=== PATIENT | female | born 2000 | race Caucasian/White ===

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

== ENCOUNTER → 2021-05-21 | Outpatient (REF) | payer OTHER ==
[2021-05-21 17:48] LABS: TOTAL PROTEIN,RANDOM URINE 14.6 MG/DL (0.0-12.0)
[2021-05-21 17:49] LABS: APPEARANCE, URINE HAZY (CLEAR); BACTERIA, URINE AUTO 1+ (NEGATIVE); BILIRUBIN, URINE AUTO NEGATIVE (NEGATIVE); BLOOD, URINE BLOOD NEGATIVE (NEGATIVE); COLOR, URINE YELLOW (YELLOW); GLUCOSE, URINE (UA) AUTO NEGATIVE (NEGATIVE); KETONE, URINE AUTO NEGATIVE (NEGATIVE); LEUKOCYTE ESTERASE, URINE AUTO NEGATIVE (NEGATIVE); MUCUS, URINE SMALL (NEGATIVE); NITRITE, URINE AUTO NEGATIVE (NEGATIVE); PROTEIN, URINE AUTO NEGATIVE (NEGATIVE); RBC, URINE AUTO 3 /HPF (0-3); SPECIFIC GRAVITY URINE AUTO 1.017 (1.002-1.035); SQUAMOUS EPITHELIAL CELL UR AU 7 /HPF (0-6); UROBILINOGEN, URINE AUTO 0.2 mg/dL (0.0-2.0); WBC, URINE AUTO 5 /HPF (0-3)
[2021-05-21 17:56] LABS: BASO % 0.4 % (0.0-1.0); EOS # 0.2 10^3/uL (0.0-0.5); EOS % 2.4 % (0.0-3.0); HEMATOCRIT 45.5 % (36.0-47.0); LYMPH # 2.3 10^3/uL (1.5-5.0); LYMPH % 32.7 % (24.0-44.0); MONO # 0.5 10^3/uL (0.0-0.8); MONO % 6.3 % (2.0-8.0); NEUTROPHILS # 4.2 10^3/uL (1.5-8.5); NEUTROPHILS % 57.9 % (36.0-66.0); PLATELET COUNT, AUTOMATED 317 10^3/uL (150-450); WHITE BLOOD COUNT 7.2 10^3/uL (4.0-10.0)
[2021-05-21 18:27] LABS: ALBUMIN 4.7 GM/DL (3.2-5.2); ALT/SGPT 40 U/L (12-78); BILIRUBIN,TOTAL 1.2 MG/DL (0.2-1.0); BLOOD UREA NITROGEN 15 MG/DL (7-18); CALCIUM LEVEL 9.7 MG/DL (8.5-10.1); CARBON DIOXIDE LEVEL 29 MEQ/L (21-32); CHLORIDE LEVEL 106 MEQ/L (98-107); COMPLEMENT C3 146 MG/DL (90-180); COMPLEMENT C4 18 MG/DL (10-40); CREATININE FOR GFR 0.86 MG/DL (0.55-1.30); GLUCOSE, FASTING 51 MG/DL (70-100); POTASSIUM SERUM 4.5 MEQ/L (3.5-5.1); SODIUM LEVEL 139 MEQ/L (136-145); TOTAL PROTEIN 8.4 GM/DL (6.4-8.2)
[2021-05-21 19:02] LABS: ERYTHROCYTE SEDIMENTATION RATE 3 mm/hr (0-20)
== END ==
LOC: M SFHCRHEU 14:10
PROVIDERS: ATTEND Internal Medicine Rheumatology
DX: M35.3 Polymyalgia rheumatica (principal); H04.123 Dry eye syndrome of bilateral lacrimal glands

== ENCOUNTER → 2022-08-09 | Outpatient (CLI) | payer OTHER ==
[~2022-08-09] MED LIST: ALBU8.5H; FLUT50SP17; LORY1TAB2; VIIB20TA
[2022-08-09 17:42] LABS: HEMATOCRIT 36.1 % (36.0-47.0); HEMOGLOBIN 11.8 g/dl (12.0-15.5); MEAN CORPUSCULAR HEMOGLOBIN 29.2 pg (27.0-33.0); MEAN CORPUSCULAR HGB CONC 32.7 g/dl (32.0-36.5); MEAN CORPUSCULAR VOLUME 89.4 fl (80.0-96.0); PLATELET COUNT, AUTOMATED 268 10^3/uL (150-450); RED BLOOD COUNT 4.04 10^6/uL (4.00-5.40); WHITE BLOOD COUNT 7.6 10^3/uL (4.0-10.0)
[2022-08-09 18:38] LABS: HIV 1&2 SCREEN NEGATIVE (NEGATIVE)
[2022-08-09 18:45] LABS: HEPATITIS C VIRUS ABY INDEX 0.1 INDEX (<0.8)
== END ==
LOC: M PLALAB 15:36
PROVIDERS: ATTEND Advanced Practice Midwife
DX: Z34.81 Encounter for supervision of other normal pregnancy, first trimester (principal); Z3A.00 Weeks of gestation of pregnancy not specified

== ENCOUNTER 2022-09-08 14:49 | Emergency (ER) | payer OTHER ==
[~2022-09-08] VITALS: Ht 154.9 cm; Wt 52.5 kg
[2022-09-08] MEDS ORDERED: APAP325T4 PO (14:57)
[2022-09-08 15:59] LABS: BASO % 0.3 % (0.0-1.0); EOS # 0.1 10^3/uL (0.0-0.5); EOS % 1.1 % (0.0-3.0); HEMATOCRIT 40.2 % (36.0-47.0); HEMOGLOBIN 13.4 g/dl (12.0-15.5); LYMPH # 2.2 10^3/uL (1.5-5.0); LYMPH % 20.8 % (24.0-44.0); MEAN CORPUSCULAR HGB CONC 33.3 g/dl (32.0-36.5); MEAN CORPUSCULAR VOLUME 90.1 fl (80.0-96.0); MONO # 0.6 10^3/uL (0.0-0.8); MONO % 5.3 % (2.0-8.0); NEUTROPHILS # 7.7 10^3/uL (1.5-8.5); NEUTROPHILS % 72.1 % (36.0-66.0); PLATELET COUNT, AUTOMATED 266 10^3/uL (150-450); RED BLOOD COUNT 4.46 10^6/uL (4.00-5.40); WHITE BLOOD COUNT 10.7 10^3/uL (4.0-10.0)
[2022-09-08 16:17] LABS: BLOOD UREA NITROGEN 8 MG/DL (9-23); CALCIUM LEVEL 9.2 MG/DL (8.5-10.1); CARBON DIOXIDE LEVEL 23 MMOL/L (20-31); CHLORIDE LEVEL 109 MMOL/L (98-107); CREATININE FOR GFR 0.57 MG/DL (0.55-1.30); GLOMERULAR FILTRATION RATE > 60.0 (>60); GLUCOSE, FASTING 80 MG/DL (60-100); POTASSIUM SERUM 4.3 MMOL/L (3.5-5.1); SODIUM LEVEL 141 MMOL/L (136-145)
[2022-09-08 16:31] LABS: HCG, SERUM QUANTITATIVE 2650.5 MIU/ML (<4.2)
[2022-09-08] MEDS ORDERED: NORCO, ANEXSIA 5/325MG TABLET (HYDROcodone/ACETAMINOPHEN) PO ONE (18:25)
[2022-09-08 18:42] VITALS: BP 124/83; TEMP 97.5; O2SAT 98
== END 2022-09-08 18:54 | disposition home or self-care (01) ==
LOC: M ED 14:49
DX: O02.1 Missed abortion (principal); Z88.8 Allergy status to other drugs, medicaments and biological substances

== ENCOUNTER → 2023-05-02 | Outpatient (CLI) | payer BC ==
[~2023-05-02] MED LIST changes: -ALBU8.5H; +ALBU8.5H INH; +APAP325T4 PO; -FLUT50SP17; +FLUTISP; +PRENTAB9 PO; +VIIB20TA PO
[2023-05-02 17:24] LABS: HEMATOCRIT 37.3 % (36.0-47.0); HEMOGLOBIN 12.1 g/dl (12.0-15.5); MEAN CORPUSCULAR HEMOGLOBIN 29.6 pg (27.0-33.0); MEAN CORPUSCULAR HGB CONC 32.4 g/dl (32.0-36.5); MEAN CORPUSCULAR VOLUME 91.2 fl (80.0-96.0); PLATELET COUNT, AUTOMATED 282 10^3/uL (150-450); RED BLOOD COUNT 4.09 10^6/uL (4.00-5.40); WHITE BLOOD COUNT 9.5 10^3/uL (4.0-10.0)
[2023-05-02 18:13] LABS: HIV 1&2 SCREEN NEGATIVE (NEGATIVE)
[2023-05-02 18:20] LABS: HEPATITIS C VIRUS ABY INDEX 0.03 INDEX (<0.8)
[2023-05-02 19:12] LABS: GC DNA AMPLIFICATION NEGATIVE (NEGATIVE)
== END ==
LOC: M PLALAB 14:59
PROVIDERS: ATTEND Obstetrics & Gynecology
DX: O26.21 Pregnancy care for patient with recurrent pregnancy loss, first trimester (principal); Z3A.00 Weeks of gestation of pregnancy not specified

== ENCOUNTER → 2023-06-28 | Outpatient (CLI) | payer BC, MEDICAID | LOC: M WHC 13:23 | PROVIDERS: ATTEND Obstetrics & Gynecology | DX: Z34.92 Encounter for supervision of normal pregnancy, unspecified, second trimester (principal) ==

== ENCOUNTER → 2023-08-23 | Outpatient (CLI) | payer BC, MEDICAID ==
[2023-08-23 13:38] LABS: HEMATOCRIT 32.2 % (36.0-47.0); HEMOGLOBIN 10.8 g/dl (12.0-15.5); MEAN CORPUSCULAR HEMOGLOBIN 31.2 pg (27.0-33.0); MEAN CORPUSCULAR HGB CONC 33.5 g/dl (32.0-36.5); MEAN CORPUSCULAR VOLUME 93.1 fl (80.0-96.0); PLATELET COUNT, AUTOMATED 233 10^3/uL (150-450); RED BLOOD COUNT 3.46 10^6/uL (4.00-5.40); WHITE BLOOD COUNT 11.1 10^3/uL (4.0-10.0)
[2023-08-23 15:29] LABS: GC DNA AMPLIFICATION NEGATIVE (NEGATIVE)
== END ==
LOC: M PLALAB 10:27
PROVIDERS: ATTEND Obstetrics & Gynecology
DX: Z34.92 Encounter for supervision of normal pregnancy, unspecified, second trimester (principal); Z3A.00 Weeks of gestation of pregnancy not specified

== ENCOUNTER → 2023-10-25 | Outpatient (CLI) | payer BC, MEDICAID ==
[~2023-10-25] MED LIST changes: +ASPI81CH33 PO; +PANT20TA6 PO
== END ==
LOC: M RAD 08:24
PROVIDERS: ATTEND Obstetrics & Gynecology
DX: O26.843 Uterine size-date discrepancy, third trimester (principal); Z3A.33 33 weeks gestation of pregnancy

== ENCOUNTER 2023-10-27 09:41 | Outpatient (CLI) | payer BC, MEDICAID ==
[~2023-10-27] VITALS: Ht 154.9 cm; Wt 68.6 kg
[~2023-10-27 09:41] MED LIST changes: -ASPI81CH33 PO; -PANT20TA6 PO
[2023-10-27] MEDS ORDERED: PANT20TA6 PO (09:56)
[2023-10-27] MEDS ORDERED: ASPI81CH33 PO (09:56)
[2023-10-27] MEDS ORDERED: HOME MED LIST COMPLETE! XX SCH (10:00)
[2023-10-27 10:05] VITALS: BP 107/68
[2023-10-27 11:36] VITALS: BP 131/78
[2023-10-28 14:57] LABS: CYTOMEGALOVIRUS ANTIBODY IGG > 10.00 U/mL (<0.60); CYTOMEGALOVIRUS IgM ANTIBODY < 30.00 AU/mL (<30.00); HERPES ZOSTER, VARICELLA IgG < 135.00 index
[2023-10-28 15:02] LABS: HSV 1 IGG TYPE SPECIFIC < 0.90 index (<0.90); HSV 2 IGG TYPE SPECIFIC < 0.90 index (<0.90)
[2023-10-31 15:47] LABS: HERPES ZOSTER, VARICELLA IgM <= 0.90 (<=0.90)
[2023-11-01 14:18] LABS: PARVOVIRUS B19 QUANT PCR Negative copies/mL (Negative); RUBELLA IgG FOR TORCH EVAL <0.90 index (Immune >0.99); RUBELLA IgM FOR TORCH EVAL 20.7 AU/mL (0.0-19.9); TOXOPLASMA IgG ABY <3.0 IU/mL (0.0-7.1)
== END 2023-10-27 12:56 | disposition home or self-care (01) ==
LOC: M LDO 09:41
PROVIDERS: ATTEND Obstetrics & Gynecology
DX: O36.5930 Maternal care for other known or suspected poor fetal growth, third trimester, not applicable or unspecified (principal); O36.8339 Maternal care for abnormalities of the fetal heart rate or rhythm, third trimester, other fetus; O99.333 Smoking (tobacco) complicating pregnancy, third trimester; F17.290 Nicotine dependence, other tobacco product, uncomplicated; O26.23 Pregnancy care for patient with recurrent pregnancy loss, third trimester; Z3A.36 36 weeks gestation of pregnancy
CPT/HCPCS: 36415; 59025; 76815; 76819; 76820; 86644; 86645; 86695; 86696; 86762; 86777; 86778; 86787; 87799; G0463

== ENCOUNTER → 2023-10-27 | Outpatient (REF) | payer BC, MEDICAID | LOC: M PLALAB 08:19 | PROVIDERS: ATTEND Obstetrics & Gynecology | DX: Z3A.36 36 weeks gestation of pregnancy (principal) ==

== ENCOUNTER → 2023-10-28 | Outpatient (REF) | payer BC, MEDICAID ==
[~2023-10-28] MED LIST changes: +ASPI81CH33 PO; +PANT20TA6 PO
== END ==
LOC: M SFHCWAGY 17:00
PROVIDERS: ATTEND Obstetrics & Gynecology
DX: Z36.89 Encounter for other specified antenatal screening (principal); Z3A.36 36 weeks gestation of pregnancy

== ENCOUNTER → 2023-10-31 | Outpatient (CLI) | payer BC, MEDICAID | LOC: M WHC 11:19 | PROVIDERS: ATTEND Obstetrics & Gynecology | DX: O36.5930 Maternal care for other known or suspected poor fetal growth, third trimester, not applicable or unspecified (principal); Z3A.36 36 weeks gestation of pregnancy ==

== ENCOUNTER 2023-11-04 13:25 | Inpatient (IN) | payer BC, MEDICAID ==
[~2023-11-04] VITALS: Ht 154.9 cm; Wt 67.7 kg
[2023-11-04 13:41] VITALS: BP 131/87
[2023-11-04] MEDS ORDERED: TRANEXAMIC ACID INJection 1,000 MG in NS 100 ML IV PRN (13:45)
[2023-11-04] MEDS: LACTATED RINGER'S 1000 ML IV STA (13:45)
[2023-11-04] MEDS ORDERED: OXYTOCIN INJ 10UNITS/ML 1ML VIAL IM PRN (13:45)
[2023-11-04] MEDS ORDERED: OXYTOCIN DRIP 30 UNITS in IV 1 EA IV PRN (13:45)
[2023-11-04] MEDS ORDERED: CARBOPROST TROMETHAMINE 250 MCG/ML AMP IM PRN (13:45)
[2023-11-04] MEDS ORDERED: METHYLERGONOVINE MALEATE 0.2MG/ML 1ML VIAL IM PRN (13:45)
[2023-11-04] MEDS ORDERED: HOME MED LIST COMPLETE! XX SCH (14:25)
[2023-11-04 14:30] LABS: HEMOGLOBIN 9.9 g/dl (12.0-15.5); MEAN CORPUSCULAR HEMOGLOBIN 27.7 pg (27.0-33.0); PLATELET COUNT, AUTOMATED 212 10^3/uL (150-450); RED BLOOD COUNT 3.57 10^6/uL (4.00-5.40); WHITE BLOOD COUNT 10.9 10^3/uL (4.0-10.0)
[2023-11-04] MEDS: miSOPROStol 50MCG 1/2 TABLET PO SCH (15:14)
[2023-11-04 15:34] LABS: HEPATITIS C VIRUS ABY INDEX < 0.02 INDEX (<0.8)
[2023-11-04 17:18] VITALS: BP 122/82
[2023-11-04 18:50] VITALS: BP 136/81
[2023-11-04 19:20] VITALS: BP 110/62
[2023-11-04 21:24] VITALS: BP 118/72
[2023-11-04 22:54] VITALS: BP 113/55
[2023-11-05] VITALS (24 sets, daily range): BP systolic 107–131; BP diastolic 56–83; O2SAT 98
[2023-11-05] MEDS: ONDANSETRON 4MG 2ML VIAL IV PRN (09:44)
[2023-11-05] MEDS: OXYTOCIN DRIP 30 UNITS in IV 1 EA IV SCH (11:52)
[2023-11-05] MEDS: LR 1,000 ML IV SCH (11:52)
[2023-11-05] MEDS: ACETAMINOPHEN 500 MG TAB PO ONE (14:55)
[2023-11-05] MEDS: BUTORPHANOL 2 MG/ML 1ML VIAL IV ONE (17:49)
[2023-11-05] MEDS: PROMETHAZINE 25MG/ML 1ML VIAL IV ONE (17:50)
[2023-11-05] MEDS: LIDOCAINE 1% MDV 20ML VIAL INFIL PRN (20:08)
[2023-11-05] MEDS ORDERED: ACETAMINOPHEN TAB 650MG DOSE (2X325MG) PO PRN (20:15)
[2023-11-05] MEDS ORDERED: IBUPROFEN 600MG TAB PO PRN (20:15)
[2023-11-05] MEDS ORDERED: RHO(D) IMMUNE GLOBULIN/MALTOSE 500MCG(2500IU)/2.2ML VIAL (WINRHO) IM SCH (20:15)
[2023-11-05] MEDS ORDERED: METHYLERGONOVINE MALEATE 0.2 MG TAB PO PRN (20:15)
[2023-11-05] MEDS: ACETAMINOPHEN 500 MG TAB PO PRN (22:06)
[2023-11-05] MEDS: DIBUCAINE 1% OINTMENT 30GM TOP PRN (22:06)
[2023-11-06 05:42] VITALS: BP 111/63; O2SAT 100
[2023-11-06] MEDS: PRENATAL VITAMINS CHEWABLE TABLET PO SCH (08:00)
[2023-11-06] MEDS: IBUPROFEN 800 MG TAB PO PRN (08:01)
[2023-11-06] MEDS: DOCUSATE SODIUM 100MG CAPSULE PO PRN (11:56)
[2023-11-06 18:00] VITALS: BP 119/74; O2SAT 97
[2023-11-07 06:00] VITALS: BP 106/71; O2SAT 99
[2023-11-07] MEDS ORDERED: IBUP80TA PO (08:38)
[2023-11-07] MEDS ORDERED: ACET-683 PO (08:38)
[2023-11-07] MEDS ORDERED: MEASLES,MUMPS,RUBELLA VACCINE INJ (MMR-II) SC.IMMUN ONE (09:00)
[2023-11-08 18:07] LABS: RUBELLA IgG FOR TORCH EVAL <0.90 index (Immune >0.99); RUBELLA IgM FOR TORCH EVAL <20.0 AU/mL (0.0-19.9)
== END 2023-11-07 12:20 | disposition home or self-care (01) | DRG 560 ==
LOC: M LDI 13:25 → M OBS 11-05 21:45
PROVIDERS: ADMIT Advanced Practice Midwife; ATTEND Advanced Practice Midwife
PROC: 3E0P7VZ Introduction of Hormone into Female Reproductive, Via Natural or Artificial Opening (ICD-10-PCS; 2023-11-04)
PROC: 3E0DXGC Introduction of Other Therapeutic Substance into Mouth and Pharynx, External Approach (ICD-10-PCS; 2023-11-04)
PROC: 10E0XZZ Delivery of Products of Conception, External Approach (ICD-10-PCS; principal; 2023-11-05)
PROC: 0KQM0ZZ Repair Perineum Muscle, Open Approach (ICD-10-PCS; 2023-11-05)
PROC: 10907ZC Drainage of Amniotic Fluid, Therapeutic from Products of Conception, Via Natural or Artificial Opening (ICD-10-PCS; 2023-11-05)
DX: O36.5990 Maternal care for other known or suspected poor fetal growth, unspecified trimester, not applicable or unspecified (principal); F17.290 Nicotine dependence, other tobacco product, uncomplicated; Z37.0 Single live birth; Z3A.37 37 weeks gestation of pregnancy; O99.334 Smoking (tobacco) complicating childbirth; O70.1 Second degree perineal laceration during delivery

== ENCOUNTER → 2024-09-10 | Outpatient (REF) | payer OTHER, MEDICAID ==
[~2024-09-10] MED LIST changes: +ACET-683 PO; +IBUP80TA PO
[2024-09-12 15:15] LABS: HPV APTIMA Not Detected (Not Detected)
== END ==
LOC: M SFHCWAGY 15:51
PROVIDERS: ATTEND Specialist
DX: Z01.419 Encounter for gynecological examination (general) (routine) without abnormal findings (principal)

== ENCOUNTER → 2024-10-09 | Outpatient (REF) | payer MEDICAID, OTHER | LOC: M SFHCRHEU 16:12 | PROVIDERS: ATTEND Internal Medicine Rheumatology | DX: R76.8 Other specified abnormal immunological findings in serum (principal); H04.123 Dry eye syndrome of bilateral lacrimal glands; R74.8 Abnormal levels of other serum enzymes; R52 Pain, unspecified; I73.00 Raynaud's syndrome without gangrene; N96 Recurrent pregnancy loss ==